=== PATIENT | female | born 1980 | race Caucasian/White ===

== ENCOUNTER → 2018-09-14 | Outpatient (CLI) | payer OTHER ==
--- NOTE | 2018-09-15 01:26 | US ---
EXAM DESCRIPTION: Abdomen,Complete CLINICAL HISTORY: 38 years Female BLOOD IN URINE, ABD PN COMPARISON: No prior exams provided for comparison. TECHNIQUE: Real-time and hayes scale sonographic imaging of the abdomen was performed. FINDINGS: The liver is normal in size and echotexture. The portal vein is patent with hepatopedal flow. The gallbladder is normal without gallstones, wall thickening, or pericholecystic fluid. No sonographic Min's sign was elicited during scanning. The common bile duct is within normal limits, measuring 3 mm in diameter. There is no intrahepatic biliary ductal dilatation. Both kidneys are normal in size, the right kidney measuring 10.4 x 3.5 x 5.7 cm while the left kidney measures 9.7 x 3.9 x 5.1 cm. 11 mm parapelvic cyst on the left. No other focal renal lesion on either side. No hydronephrosis or shadowing calculus. The spleen measures 12.3 cm without focal lesion. The visualized portions of the pancreas, IVC, and aorta are normal. No ascites. IMPRESSION: No acute findings in the abdomen. Small left renal cyst. Electronically signed by: Lyssa Jeffers MD 09/15/2018 1:24 AM CDT
--- NOTE | 2018-09-15 01:29 | US ---
EXAM DESCRIPTION: Pelvic,Non-OB CLINICAL HISTORY: 38 years Female BLOOD IN URINE, ABD PN COMPARISON: None. TECHNIQUE: Real-time, hayes scale, and Doppler transabdominal sonographic imaging of the pelvis. FINDINGS: There is a single live intrauterine gestation with the gestational sac implanted in the endometrium of the fundus of the uterus. The crown rump length measures 0.4 cm, corresponding to an estimated gestational age of 6 weeks 1 day. There is cardiac activity present with a heart rate of 120 beats per minute. There is a 5 x 18 x 15 mm subchorionic collection. Small dominant follicle on the left ovary. Normal right ovary. No visualized free fluid. IMPRESSION: Single live intrauterine gestation of approximately six weeks one day with a subchorionic collection measuring up to 1.8 cm. Small dominant follicle in the left ovary. No free fluid. Electronically signed by: Lyssa Jeffers MD 09/15/2018 1:27 AM CDT
== END ==
LOC: US 10:18
PROVIDERS: ATTEND Family Medicine
DX: N83.02 Follicular cyst of left ovary (principal); N28.1 Cyst of kidney, acquired; Z33.1 Pregnant state, incidental; Z3A.01 Less than 8 weeks gestation of pregnancy